=== PATIENT | female | born 1975 | race Caucasian/White ===

== ENCOUNTER 2018-03-10 06:45 | Day surgery (SDC) | payer BC ==
[2018-03-09 12:31] LABS: BASOPHILS % (AUTO) 0.7 % (0.0-2.0); EOSINOPHILS # (AUTO) 0.1 K/uL (0.0-0.4); EOSINOPHILS % (AUTO) 1.4 % (0.0-4.0); HEMATOCRIT 39.7 % (36-48); HEMOGLOBIN 13.4 g/dL (12.0-16.0); LYMPHOCYTES # (AUTO) 1.8 K/uL (1.0-5.5); LYMPHOCYTES % (AUTO) 24.7 % (20.5-51.5); MEAN CORPUSCULAR HEMOGLOBIN 32 pg (27-31); MEAN CORPUSCULAR HGB CONC 34 % (32-36); MEAN CORPUSCULAR VOLUME 93 fL (79.0-98.0); MONOCYTES # (AUTO) 0.5 K/uL (0.0-1.0); MONOCYTES % (AUTO) 7.4 % (1.7-9.3); NEUTROPHILS # (AUTO) 4.7 K/uL (1.8-7.7); NEUTROPHILS % (AUTO) 65.8 % (40.0-70.0); PLATELET COUNT (AUTO) 195 K/uL (130-430); RED BLOOD CELL COUNT(AUTO) 4.25 MIL/uL (4.2-6.2); RED CELL DISTRIBUTION WIDTH 12.4 % (9.0-15.0); WHITE BLOOD COUNT (AUTO) 7.1 K/uL (4.8-10.8)
[2018-03-09 12:46] LABS: ALBUMIN 3.8 g/dL (3.4-4.8); CALCIUM 8.8 mg/dL (8.4-11.0); CREATININE 0.68 mg/dL (0.55-1.30); TOTAL BILIRUBIN 0.5 mg/dL (0.0-1.0)
[2018-03-09 13:09] LABS: BILIRUBIN,URINE NEGATIVE (NEGATIVE); BLOOD, URINE NEGATIVE (NEGATIVE); CLARITY/URINE SL HAZY (CLEAR); COLOR,URINE YELLOW (YELLOW); GLUCOSE,URINE NEGATIVE (NEGATIVE); KETONES,URINE NEGATIVE (NEGATIVE); LEUKOCYTE ESTERASE ,URINE NEGATIVE (NEGATIVE); NITRITE, URINE NEGATIVE (NEGATIVE); PROTEIN URINE NEGATIVE (NEGATIVE); UROBILINOGEN,URINE 0.2 (0.2-1.0)
[~2018-03-10] VITALS: Ht 157.5 cm; Wt 68.5 kg
[2018-03-10] MEDS ORDERED: LR 1,000 ML IV SCH (09:14)
[2018-03-10] MEDS ORDERED: MORPHINE 4 MG/ML INJ. SYRINGE IVP PRN ×3 (09:15)
[2018-03-10] MEDS ORDERED: METOCLOPRAMIDE HCL 10 MG/2 ML VIAL IVP PRN (09:15)
[2018-03-10] MEDS ORDERED: ONDANSETRON HCL 4 MG/2 ML VIAL IVP PRN (09:30)
[2018-03-10] MEDS ORDERED: LR 1,000 ML IV.SOLN IV ONE (09:30)
[2018-03-10] MEDS ORDERED: fentaNYL CITRATE/PF 100 MCG/2 ML AMP ONE (09:30)
[2018-03-10] MEDS ORDERED: MIDAZOLAM HCL 5 MG/ML VIAL (VERSED) IV ONE (09:30)
[2018-03-10] MEDS ORDERED: SEVOFLURANE 15 MIN GAS INH ONE (09:30)
[2018-03-10] MEDS ORDERED: KETOROLAC TROMETHAMINE 30 MG VIAL ONE (09:30)
[2018-03-10] MEDS ORDERED: PROMETHAZINE HCL 25 MG/ML AMP IM PRN ×2 (09:30)
[2018-03-10] MEDS ORDERED: HYDROmorphone 2 MG TAB PO PRN (09:30)
[2018-03-10] MEDS ORDERED: PROPOFOL 200MG/ 20ML VIAL (DIPRIVAN) IV ONE (09:30)
[2018-03-10] MEDS ORDERED: OXYCODONE/ACETAMINOPHEN 5-325 TABLET PO PRN (09:30)
[2018-03-10 10:16] VITALS: BP_SYST 98
[2018-03-10] MEDS ORDERED: OXYCODONE/ACETAMINOPHEN 5-325 TABLET ONE (10:42)
[2018-03-10] MEDS ORDERED: KETOROLAC TROMETHAMINE 30 MG VIAL IVP SCH (12:00)
== END 2018-03-10 12:00 | disposition home or self-care (01) ==
LOC: SDS 06:45 → SMU 06:45 → SDS 12:00
PROVIDERS: ATTEND Obstetrics & Gynecology
DX: N93.9 Abnormal uterine and vaginal bleeding, unspecified (principal); Z79.899 Other long term (current) drug therapy
CPT/HCPCS: 36415; 58563; 80053; 81003; 84703; 85025; 86886; 86900; 86901; 88305; J1885; J2250; J2704; J3010; J7120